=== PATIENT | female | born 1960 | race Caucasian/White ===

== ENCOUNTER 2018-08-13 11:43 | Emergency (ER) | payer OTHER ==
[~2018-08-13] VITALS: Ht 162.6 cm; Wt 70.5 kg
[2018-08-13 11:49] VITALS: BP 120/86
== END 2018-08-13 14:07 | disposition home or self-care (01) ==
LOC: ED 13:41
DX: S80.01XA Contusion of right knee, initial encounter (principal); W01.0XXA Fall on same level from slipping, tripping and stumbling without subsequent striking against object, initial encounter; Y93.89 Activity, other specified; Y92.830 Public park as the place of occurrence of the external cause; Y99.8 Other external cause status
CPT/HCPCS: 29530; 99284